=== PATIENT | female | born 1985 | race Caucasian/White ===

== ENCOUNTER 2024-01-31 09:00 | Emergency (ER) | payer OTHER ==
[2024-01-31] MEDS ORDERED: Acetaminophen 500 MG TAB ONE (10:01)
[2024-01-31 10:07] LABS: Bilirubin Neg (Negative); Blood, Urine Negative (Negative); Clarity Clear (Clear); Glucose, Urine (Dipstick) Normal (Negative); Ketone, Urine Negative (Negative); Leukocyte Negative (Negative); Nitrite Negative (Negative); Protein, Urine (Dipstick) Negative (Neg-Trace); Specific Gravity, Urine 1.015 (1.005-1.030); Urobilinogen Normal mg/dL (Less than 2)
[2024-01-31 10:22] LABS: Bacteria/HPF 1+ HPF (None Seen); CAUTI Indications for Culture Pelvic or flank pain; RBC/HPF None Seen HPF (0-3); Urine Culture Reflex No No; WBC/HPF 0-3 HPF (0-3)
[2024-01-31 10:40] LABS: ALT (SGPT) 14 U/L (8-55); AST (SGOT) 12 U/L (5-34); Albumin 3.4 g/dL (3.5-5.0); Alkaline Phosphatase 54 U/L (40-110); Anion Gap 15 mmol/L (10-20); BUN (Urea Nitrogen) 7 mg/dL (7.0-18.7); Bilirubin, Total 0.4 mg/dL (0.2-1.2); Calc. Creatinine Clearance 0 mL/min (70-130); Calcium 9.5 mg/dL (7.8-10.44); Carbon Dioxide 21 mmol/L (22-29); Chloride 105 mmol/L (98-107); Estimated GFR 116; Globulin 3.2 g/dL (2.4-3.5); Glucose 88 mg/dL (70-105); Potassium 3.8 mmol/L (3.5-5.1); Protein, Total 6.6 g/dL (6.0-8.3); Sodium 137 mmol/L (136-145)
[2024-01-31 10:41] LABS: #Basophils 0.02 10x3/uL (0.0-0.2); #Eosinphils 0.08 10x3/uL (0.0-0.5); #Monocytes 0.62 10x3/uL (0.0-1.1); #Neutrophils 6.19 10x3/uL (1.5-8.4); %Basophils 0.2 % (0.0-2.0); %Eosinophils 0.9 % (0.0-6.0); %Lymphocytes 20.9 % (18.0-47.0); %Monocytes 7.1 % (0.0-10.0); %Neutrophils 70.6 % (40.0-75.0); Hematocrit 39.2 % (34.9-44.5); Hemoglobin 14.1 g/dL (12.0-15.5); Mean Corpuscular Volume 89.1 fl (81.6-98.3); Mean Platelet Volume 11.9 fl (7.4-10.4); Platelet Count 213 10x3/uL (150-450); RBC Distribution Width 12.1 % (11.5-14.5); White Blood Cell (WBC) Count 8.8 10x3/uL (3.5-10.5)
== END 2024-01-31 12:10 | disposition home or self-care (01) ==
LOC: CSHERS 09:00
DX: O9A.211 Injury, poisoning and certain other consequences of external causes complicating pregnancy, first trimester (principal); S39.012A Strain of muscle, fascia and tendon of lower back, initial encounter; Z3A.12 12 weeks gestation of pregnancy
CPT/HCPCS: 76770; 76856; 80053; 81001; 84702; 85025

== ENCOUNTER 2024-06-10 09:19 | Inpatient (IN) | payer BC ==
[2024-06-10 09:42] VITALS: BMI 44.3
[2024-06-10] MEDS ORDERED: Lorazepam 2 MG/ML VIAL SLOW IVP PRN ×2 (09:58→20:10)
[2024-06-10] MEDS ORDERED: Calcium Gluc 4.6 MEQ/10 ML (100 MG/ML) SLOW IVP PRN ×2 (09:58→20:10)
[2024-06-10] MEDS ORDERED: hydrALAZINE 20 MG/ML VIAL SLOW IVP PRN ×4 (09:58→20:10)
[2024-06-10] MEDS: NIFEdipine 10 MG CAP ONE (10:24)
[2024-06-10] MEDS: Lactated Ringer's 1,000 ML IV SCH (10:35)
[2024-06-10] MEDS: hydrALAZINE 20 MG/ML VIAL SLOW IVP PRN ×2 (10:36→10:53)
[2024-06-10] MEDS: Magnesium Sulfate 20 gm/500 ml 20 GM/500 ML BAG ONE (10:42)
[2024-06-10 10:49] LABS: #Basophils 0.02 10x3/uL (0.0-0.2); #Monocytes 1.17 10x3/uL (0.0-1.1); #Neutrophils 7.96 10x3/uL (1.5-8.4); %Basophils 0.2 % (0.0-2.0); %Eosinophils 0.8 % (0.0-6.0); %Lymphocytes 21.3 % (18.0-47.0); %Monocytes 9.8 % (0.0-10.0); %Neutrophils 66.9 % (40.0-75.0); Hematocrit 32.1 % (34.9-44.5); Hemoglobin 10.9 g/dL (12.0-15.5); Mean Corpuscular Hemoglobin 30.2 pg (27.0-33.0); Mean Corpuscular Volume 88.9 fL (81.6-98.3); Mean Platelet Volume 12.1 fL (7.4-10.4); Platelet Count 242 10x3/uL (150-450); RBC Distribution Width 12.4 % (11.5-14.5); Red Blood Cell (RBC) Count 3.61 10x6/uL (3.90-5.03); White Blood Cell (WBC) Count 11.9 10x3/uL (3.5-10.5)
[2024-06-10 11:00] LABS: ALT (SGPT) 27 U/L (8-55); AST (SGOT) 22 U/L (5-34); Albumin 2.7 g/dL (3.5-5.0); Alkaline Phosphatase 119 U/L (40-110); Anion Gap 14 mmol/L (10-20); BUN (Urea Nitrogen) 5 mg/dL (7.0-18.7); Bilirubin, Total 0.3 mg/dL (0.2-1.2); Calc. Creatinine Clearance 269 mL/min (70-130); Carbon Dioxide 21 mmol/L (22-29); Chloride 105 mmol/L (98-107); Estimated GFR 119; Globulin 3.1 g/dL (2.4-3.5); Glucose 77 mg/dL (70-105); Potassium 3.5 mmol/L (3.5-5.1); Protein, Total 5.8 g/dL (6.0-8.3); Sodium 136 mmol/L (136-145)
[2024-06-10] MEDS ORDERED: HYDROcodone/Acetaminophen 5/325 mg Tablet PO PRN ×2 (11:18)
[2024-06-10] MEDS ORDERED: Ondansetron PF 4 MG/2 ML Vial IVP PRN ×5 (11:18→19:35)
[2024-06-10] MEDS ORDERED: Lidocaine 1% (PF) 30 ML VIAL SC PRN (11:18)
[2024-06-10] MEDS ORDERED: Promethazine HCl 25 MG/ML VIAL IM PRN ×3 (11:18→19:35)
[2024-06-10] MEDS ORDERED: Ibuprofen 800 MG TAB PO PRN (11:18)
[2024-06-10] MEDS ORDERED: fentaNYL 50 mcg/mL 1 mL Vial SLOW IVP PRN ×3 (11:18→19:35)
[2024-06-10] MEDS ORDERED: Oxytocin 30 units/NS 500 ML 500 ML IV SCH (11:30)
[2024-06-10] MEDS: NIFEdipine 10 MG CAP PO SCH (11:40)
[2024-06-10] MEDS: hydrALAZINE 20 MG/ML VIAL ONE (11:40)
[2024-06-10] MEDS: Betamet Acet/Betamet Na Ph 30 MG/5 ML VIAL IM SCH (12:16)
[2024-06-10] MEDS: Labetalol HCl 100 MG/20 ML VIAL SLOW IVP PRN ×2 (12:21→16:53)
[2024-06-10 12:29] LABS: HBsAg Index 0.19 S/CO (0-0.99); Hep B Surf Ag - L&D Non-Reactive S/CO (NonReactive)
[2024-06-10 12:31] LABS: Syphilis Antibody Nonreactive (Nonreactive); Syphilis Antibody Index 0.04 S/CO (<1.00 Non-Reactive)
[2024-06-10] MEDS ORDERED: Magnesium Sulfate 20 gm/500 ml 20 GM/500 ML BAG IVPB SCH (12:45)
[2024-06-10] MEDS: Magnesium Sulfate 20 gm/500 ml 4 GM/100 ML BAG IVPB ONE (13:24)
[2024-06-10 13:34] LABS: HIV (1/2) Antibody/Antigen Non-Reactive (NonReactive); HIV 1/2 INDEX 0.11 S/CO (<1.00)
[2024-06-10 13:42] LABS: Creatinine, Urine 55.63 mg/dL (47-110)
[2024-06-10] MEDS: Acetaminophen 500 MG TAB PO PRN (14:46)
[2024-06-10] MEDS: CEFAZOLIN 2 GM VIAL ONE (17:48)
[2024-06-10] MEDS ORDERED: HYDROmorphone 0.5 MG/0.5 ML SYRINGE SLOW IVP PRN (18:23)
[2024-06-10] MEDS ORDERED: Naloxone HCl 0.4 mg/ml Vial IVP PRN ×4 (18:23→19:35)
[2024-06-10] MEDS ORDERED: Naloxone HCl 0.4 mg/ml Vial IV PRN ×2 (18:23→19:35)
[2024-06-10] MEDS ORDERED: Meperidine HCl/PF 25 MG (1 mL) VIAL SLOW IVP PRN ×2 (18:23→19:35)
[2024-06-10] MEDS ORDERED: Ketorolac Tromethamine 30 MG (1 mL) VIAL IVP PRN ×2 (18:23→19:35)
[2024-06-10] MEDS ORDERED: diphenhydrAMINE 50 MG/ML VIAL IVP PRN ×2 (18:23→19:35)
[2024-06-10] MEDS ORDERED: Moisturizing Cream (Eucerin) 113 GM JAR TOP PRN ×2 (18:23→19:35)
[2024-06-10] MEDS ORDERED: Ketorolac Tromethamine 30 MG (1 mL) VIAL IVP SCH ×2 (18:30→19:45)
[2024-06-10] MEDS ORDERED: [UNRECOGNIZED DRUG - REMARK] FS SCH (18:30)
[2024-06-10] MEDS ORDERED: Bicitra 30 ML UDCUP PO PRN (18:32)
[2024-06-10] MEDS ORDERED: Famotidine/PF 20 mg/2ml Vial SLOW IVP PRN (18:32)
[2024-06-10] MEDS ORDERED: Simethicone Chewable 80 MG TAB PO PRN (18:42)
[2024-06-10] MEDS ORDERED: Bisacodyl 10 MG SUPP PR PRN (18:42)
[2024-06-10] MEDS ORDERED: Lanolin Ointment 7 GM TUBE TOP PRN (18:42)
[2024-06-10] MEDS ORDERED: diphenhydrAMINE 25 MG CAP PO PRN (18:42)
[2024-06-10] MEDS ORDERED: CEFAZOLIN 2 GM in Sodium Chloride 0.9% 100 ML IVPB SCH (18:45)
[2024-06-10] MEDS ORDERED: Morphine 4 MG/ML VIAL SLOW IVP PRN (19:35)
[2024-06-10] MEDS ORDERED: [UNRECOGNIZED DRUG - REMARK] FS SCH (19:45)
[2024-06-10] MEDS ORDERED: Labetalol HCl 100 MG/20 ML VIAL SLOW IVP PRN ×2 (20:10)
[2024-06-10 20:52] LABS: Analyzer IN Cardio CS NICU; RapidComm Collect By RN; pH (Cord, venous) 7.324 (7.250-7.350)
[2024-06-10] MEDS: Ondansetron PF 4 MG/2 ML Vial IVP PRN (23:30)
[2024-06-11] MEDS: Docusate 100 MG CAP PO SCH ×2 (03:42→23:10)
[2024-06-11] MEDS: Ferrous Sulfate 325 MG TAB PO SCH ×2 (03:42→22:34)
[2024-06-11] MEDS: Magnesium Sulfate 20 gm/500 ml 20 GM/500 ML BAG IVPB SCH (04:47)
[2024-06-11] MEDS ORDERED: Zolpidem Tartrate 5 MG TAB PO PRN (06:30)
[2024-06-11] MEDS ORDERED: HYDROcodone/Acetaminophen 5/325 mg Tablet PO PRN ×4 (06:30→22:05)
[2024-06-11 06:53] LABS: ALT (SGPT) 28 U/L (8-55); AST (SGOT) 25 U/L (5-34); Albumin 2.5 g/dL (3.5-5.0); Alkaline Phosphatase 111 U/L (40-110); Anion Gap 13 mmol/L (10-20); BUN (Urea Nitrogen) 5 mg/dL (7.0-18.7); Bilirubin, Total 0.3 mg/dL (0.2-1.2); Calc. Creatinine Clearance 265 mL/min (70-130); Calcium 7.3 mg/dL (7.8-10.44); Carbon Dioxide 22 mmol/L (22-29); Chloride 105 mmol/L (98-107); Estimated GFR 119; Globulin 3.2 g/dL (2.4-3.5); Glucose 118 mg/dL (70-105); Potassium 3.6 mmol/L (3.5-5.1); Protein, Total 5.7 g/dL (6.0-8.3); Sodium 136 mmol/L (136-145)
[2024-06-11] MEDS: Labetalol HCl 200 MG TAB PO SCH (08:40)
[2024-06-11] MEDS: Prenatal Vitamin 1 TAB PO SCH (08:41)
[2024-06-11] MEDS: Acetaminophen 325 MG TAB PO PRN (08:42)
[2024-06-11 10:19] LABS: Hematocrit 29.8 % (34.9-44.5); Mean Corpuscular HGB CONC 33.6 g/dL (32.0-36.0); Mean Corpuscular Hemoglobin 29.7 pg (27.0-33.0); Mean Corpuscular Volume 88.4 fL (81.6-98.3); Mean Platelet Volume 12.2 fL (7.4-10.4); Platelet Count 250 10x3/uL (150-450); RBC Distribution Width 12.7 % (11.5-14.5); Red Blood Cell (RBC) Count 3.37 10x6/uL (3.90-5.03); White Blood Cell (WBC) Count 14.1 10x3/uL (3.5-10.5)
[2024-06-11] MEDS: Ibuprofen 800 MG TAB PO SCH (20:28)
[2024-06-11] MEDS ORDERED: Ondansetron PF 4 MG/2 ML Vial IVP PRN (22:05)
[2024-06-11] MEDS ORDERED: Boostrix 0.5 ML (Tdap) VIAL (>/=7 yrs of age) IM ONE (22:05)
[2024-06-11] MEDS ORDERED: hydrALAZINE 20 MG/ML VIAL SLOW IVP PRN (22:05)
[2024-06-11] MEDS ORDERED: diphenhydrAMINE 25 MG CAP PO PRN (22:05)
[2024-06-11] MEDS ORDERED: Bisacodyl 10 MG SUPP PR PRN (22:05)
[2024-06-12] MEDS: Ibuprofen 800 MG TAB PO SCH (05:26)
[2024-06-12] MEDS: Oxytocin 10 UNITS/ML VIAL ONE (08:05)
[2024-06-12] MEDS: Dexmedetomidine 200 MCG/2 ML VIAL ONE (08:05)
[2024-06-12] MEDS: Morphine PF 10 MG/10 ML VIAL ONE (08:05)
[2024-06-12] MEDS: ePHEDrine Sulfate 50 MG/10 ML VIAL ONE (08:05)
[2024-06-12] MEDS: Docusate 100 MG CAP PO SCH (09:08)
[2024-06-12] MEDS: Simethicone Chewable 80 MG TAB PO PRN (09:09)
[2024-06-12] MEDS: Ferrous Sulfate 325 MG TAB PO SCH (09:09)
[2024-06-12] MEDS: Acetaminophen 325 MG TAB PO PRN (11:09)
[2024-06-13] MEDS: Ibuprofen 800 MG TAB PO SCH (06:01)
[2024-06-13 14:51] VITALS: TEMP 98
[2024-06-13 14:52] VITALS: BP 159/72
== END 2024-06-13 16:00 | disposition home or self-care (01) | DRG 788 ==
LOC: CSHLD/OP 09:19 → CSHLD 10:36 → CSHPP 06-11 21:35
PROVIDERS: ADMIT Obstetrics & Gynecology; ATTEND Obstetrics & Gynecology
PROC: 10D00Z1 Extraction of Products of Conception, Low, Open Approach (ICD-10-PCS; principal; 2024-06-10)
DX: O11.4 Pre-existing hypertension with pre-eclampsia, complicating childbirth (principal); O99.214 Obesity complicating childbirth; Z3A.31 31 weeks gestation of pregnancy; Z37.0 Single live birth; Z79.899 Other long term (current) drug therapy; Z98.890 Other specified postprocedural states; Z88.1 Allergy status to other antibiotic agents; O26.893 Other specified pregnancy related conditions, third trimester; Z67.21 Type B blood, Rh negative; O34.13 Maternal care for benign tumor of corpus uteri, third trimester; D25.2 Subserosal leiomyoma of uterus
CPT/HCPCS: 36415; 51702; 76815; 80053; 82570; 82805; 84156; 85025; 85027; 86780; 86850; 86870; 86900; 86901; 87340; 87389; 88307; 99285; J0360; J0702; J2274; J2405; J2590; J3475; J7120

== ENCOUNTER 2025-04-20 11:19 | Outpatient (CLI) | payer BC, OTHER | END 2025-04-20 11:20 | disposition home or self-care (01) | LOC: CSHDTY/OP 11:19 | PROVIDERS: ATTEND Nurse Practitioner Family | DX: Z71.3 Dietary counseling and surveillance (principal) | CPT/HCPCS: 97802 ==